=== PATIENT | female | born 1980 | race African-American/Black ===

== ENCOUNTER 2017-12-15 17:05 | Emergency (ER) | payer MEDICAID, MEDICARE ==
--- NOTE | 2017-12-15 18:43 | RAD ---
INDICATION: Left shoulder pain. COMPARISON: Comparison is made with a prior study from April 02, 2011. TECHNIQUE: 5 views of the left shoulder were obtained. FINDINGS: There is inferior subluxation of the humeral head relative to the glenoid process of the scapula. The glenoid process appears dysplastic. No acute fracture is seen. IMPRESSION: INFERIOR SUBLUXATION OF THE HUMERUS.
[2017-12-15] MEDS ORDERED: HYDROcodone/ACETAMIN 5-325 MG* 1 TAB PO ONE (18:50)
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
[2017-12-15 19:09] VITALS: BP 128/66
--- NOTE | 2017-12-16 07:06 | RAD ---
INDICATION: Left shoulder status post external reduction. COMPARISON: Comparison is made with the prior prereduction films of the same date. TECHNIQUE: A single AP view of the left shoulder was obtained. FINDINGS: The bones are normal alignment. There has been interval reduction of the previously noted inferior subluxation of the humerus. No fracture is seen. IMPRESSION: STATUS POST REDUCTION. THE BONES ARE IN NORMAL ALIGNMENT. R1NF
== END 2017-12-15 19:08 | disposition home or self-care (01) ==
LOC: ED 17:05
DX: S43.032A Inferior subluxation of left humerus, initial encounter (principal); X50.0XXA Overexertion from strenuous movement or load, initial encounter; Y92.410 Unspecified street and highway as the place of occurrence of the external cause; Z88.5 Allergy status to narcotic agent; Z88.8 Allergy status to other drugs, medicaments and biological substances
CPT/HCPCS: 23650; 99282

== ENCOUNTER 2017-12-16 16:34 | Emergency (ER) | payer SELFPAY ==
[2017-12-16] MEDS ORDERED: Diazepam TAB(*) 5 MG PO ONE ×3 (18:08→19:07)
[2017-12-16] MEDS ORDERED: Ketorolac INJ* 60 MG/2 ML VIAL IM ONE (18:09)
--- NOTE | 2017-12-16 18:16 | ED ---
Upper Extremity Pain - HPI Summary HPI Summary: Patient complains of persistent left shoulder pain status post left shoulder reduction here in the ED yesterday. States ibuprofen and Rx for hydrocodone are not controlling pain. Denies further dislocation. Admits to full range of motion but with pain. Patient seeking pain control. Denies loss of sensation or function distally on left, any other symptoms, injury, pain. - History of Current Complaint Chief Complaint: EDPrescriptionNeeded Stated Complaint: LT SHOULDER PAIN Time Seen by Provider: 12/16/17 17:30 Hx Obtained From: Patient Mechanism Of Injury: Other Onset/Duration: Started Days Ago Timing: Constant Severity Initially: Severe Severity Currently: Severe Pain Location: Shoulder Character: Throbbing Aggravating Factor(s): Movement, Abduction - Allergies/Home Medications Allergies/Adverse Reactions: Allergies Allergy/AdvReac Type Severity Reaction Status Date / Time morphine Allergy Hives Verified 12/15/17 17:22 ondansetron [From Zofran] Allergy Blisters Verified 12/15/17 17:22 PMH/Surg Hx/FS Hx/Imm Hx Endocrine/Hematology History: Denies: Hx Anticoagulant Therapy Respiratory History: Denies: Hx Lung Cancer History: Denies: Hx Dialysis Neurological History: Denies: Hx CVA Infectious Disease History: No Infectious Disease History: Denies: Traveled Outside the US in Last 30 Days - Social History Alcohol Use: None Substance Use Type: Reports: None Smoking Status (MU): Never Smoked Tobacco Review of Systems Constitutional: Negative Eyes: Negative ENT: Negative Cardiovascular: Negative Respiratory: Negative Gastrointestinal: Negative Genitourinary: Negative Positive: Arthralgia Skin: Negative Neurological: Negative Psychological: Normal All Other Systems Reviewed And Are Negative: Yes Physical Exam Vital Signs On Initial Exam: Initial Vitals Temp Pulse Resp BP Pulse Ox 98.6 F 60 14 141/101 100 12/16/17 16:45 12/16/17 16:45 12/16/17 16:45 12/16/17 16:45 12/16/17 16:45 Diagnostics - Vital Signs Vital Signs Temp Pulse Resp BP Pulse Ox 12/16/17 16:45 98.6 F 60 14 141/101 100 - Laboratory Lab Statement: Any lab studies that have been ordered have been reviewed, and results considered in the medical decision making process. Course/Dx - Course Course Of Treatment: Full range of motion left shoulder. No deformity, ecchymosis, erythema, extra warmth, swelling noted to left shoulder. Neuro exam normal distally on left upper extremity. Pain with abduction past shoulder level. Rx for Valium. Rx for oxycodone. Follow-up with orthopedics - Diagnoses Provider Diagnoses: Left shoulder pain Discharge - Sign-Out/Discharge Documenting (check all that apply): Patient Departure - Discharge Plan Condition: Stable Disposition: HOME Prescriptions: Diazepam TAB(*) [Valium TAB(*)] 5 mg PO TID PRN 2 Days #5 tab MDD 3 tabs PRN Reason: Pain Oxycodone HCl 5 mg PO Q6HR #8 tablet MDD 4 tabs Patient Education Materials: Shoulder Dislocation Exercises (GEN), Shoulder Dislocation (ED) Referrals: No Primary Care Phys,NOPCP [Primary Care Provider] - Felipe Mariscal MD [Medical Doctor] - Additional Instructions: Follow-up follow up with your orthopedic surgeon in [place] or with local orthopedics Dr. Mariscal for further evaluation of left shoulder pain. Return to the ED for any new or worsening symptoms - Billing Disposition and Condition Condition: STABLE Disposition: Home
[2017-12-16] MEDS ORDERED: oxyCODONE TAB* 5 MG TAB PO ONE ×2 (18:38→19:07)
[2017-12-16 19:21] VITALS: BP 127/79
== END 2017-12-16 19:20 | disposition home or self-care (01) ==
LOC: ED 16:34
DX: M25.512 Pain in left shoulder (principal); Z88.5 Allergy status to narcotic agent; Z88.8 Allergy status to other drugs, medicaments and biological substances
CPT/HCPCS: 99282; A9270-GY; J1885

== ENCOUNTER 2017-12-24 12:06 | Emergency (ER) | payer MEDICARE ==
--- OUTSIDE RECORDS SUMMARY | 2017-12-24 12:24 | XMS REPORT ---
:1980 External Reference #:[id number] Author Organization [facility] Address [address] [place] [address] Phone [phone] Care Team Providers Name Role Phone Patient's Choice Primary Care Physician Unavailable Payers Type Date Identification Numbers Payment Provider Subscriber Medicare Primary Policy Number: [id number] Medicare Layla Michaud PayID: [id number] [facility] [address] [place] [address] Problems Description No Information Social History Type Date Description Comments Lives With Children Occupation Disabled ETOH Use Denies alcohol use Smoking Patient has never smoked Allergies, Adverse Reactions, Alerts Date Description Reaction Status Severity Comments 12/19/2017 NKDA active Medications Medication Date Status Form Strength Qnty SIG Indications Ordering Provider No Active 12/19/2017 Active Unknown Medications Vital Signs Date Vital Result Comment 12/19/2017 Height 67 inches 5'7" Weight 149.75 lb Heart Rate 72 /min BP Systolic 112 mmHg BP Diastolic 76 mmHg Respiratory Rate 18 /min Body Temperature 98.3 F Pain Level 4 BMI (Body Mass Index) 23.5 kg/m2 Results Description No Information Procedures Description No Information Plan of Care Future Appointment(s):01/18/2018 10:00 am - Jonathan Yoon MD at [facility]12/19/2017 - Jonathan Yoon, [id number] Recurrent dislocation, left shoulderNew Therapy:Physical TherapyFollow up: Follow up: 4 weeks
--- NOTE | 2017-12-24 13:40 | RAD ---
INDICATION: Left shoulder pain and dislocation in a patient with a history of chronic dislocations. COMPARISON: Most recent comparison chest x-rays dated December 15, 2017 TECHNIQUE: 4 views of the left shoulder were obtained. FINDINGS: The left humeral head is displaced inferiorly and anteriorly relative to the bony glenoid labrum. There is irregularity of the bony glenoid labrum as well as flattening and bony remodeling of the left humeral head. IMPRESSION: APPEARANCES CONSISTENT WITH DISLOCATED LEFT SHOULDER WITH BONY REMODELING OF THE GLENOHUMERAL JOINT SURFACES INDICATING CHRONIC DISLOCATIONS.
[2017-12-24 15:02] VITALS: BP 120/88
--- NOTE | 2017-12-24 15:10 | ED ---
Upper Extremity Pain - HPI Summary HPI Summary: Patient is a 37-year-old female presenting to the ED with a left shoulder dislocation. Last shoulder dislocation was last week. She was followed up with Dr. Booth who suggested PT. She states she has remained in her sling since discharge from hospital except for when she was in the shower this morning. She states she slipped in the shower and put her arm down and in the shoulder immediately dislocated. She endorses a 5/10 pain, constant and aching. She denies any other trauma or pain at this time. She has had 2 previous surgeries to the same shoulder. History of jeovanny meehan. - History of Current Complaint Chief Complaint: EDShoulderClavicleInj Stated Complaint: LT SHOULDER INJURY Hx Obtained From: Patient Mechanism Of Injury: Twisted Onset/Duration: Started Hours Ago Timing: Constant Severity Initially: Moderate Severity Currently: Moderate Pain Location: Shoulder Character: Aching Aggravating Factor(s): Movement, Lifting, Flexion, Extension Alleviating Factor(s): Rest, Ice Associated Signs & Symptoms: Negative: Swelling, Redness, Bruising, Weakness, Numbness/Tingling Related History: Dominant Hand Right - Risk Factors Non-Orthopedic Risk Factor: Negative DVT Risk Factors: Negative Septic Arthritis Risk Factor: Negative Compartment Syndrome Risk Factors: Pain - Allergies/Home Medications Allergies/Adverse Reactions: Allergies Allergy/AdvReac Type Severity Reaction Status Date / Time morphine Allergy Hives Verified 12/15/17 17:22 ondansetron [From Zofran] Allergy Blisters Verified 12/15/17 17:22 PMH/Surg Hx/FS Hx/Imm Hx Previously Healthy: Yes Endocrine/Hematology History: Denies: Hx Anticoagulant Therapy Respiratory History: Denies: Hx Lung Cancer History: Denies: Hx Dialysis Neurological History: Denies: Hx CVA - Immunization History Hx Pertussis Vaccination: No Immunizations Up to Date: Yes Infectious Disease History: No Infectious Disease History: Denies: Traveled Outside the US in Last 30 Days - Social History Occupation: Unemployed Lives: With Family Alcohol Use: None Hx Substance Use: No Substance Use Type: Reports: None Hx Tobacco Use: No Smoking Status (MU): Never Smoked Tobacco Review of Systems Constitutional: Negative Negative: Fever, Chills, Fatigue, Skin Diaphoresis Negative: Epistaxis, Dental Pain Negative: Palpitations, Chest Pain Positive: no symptoms reported, see HPI Positive: Arthralgia - left shoulder dislocation Negative: Rash, Bruising Neurological: Negative Psychological: Normal All Other Systems Reviewed And Are Negative: Yes Physical Exam Triage Information Reviewed: Yes Vital Signs On Initial Exam: Initial Vitals Temp Pulse Resp BP Pulse Ox 97.8 F 77 14 133/54 99 12/24/17 12:11 12/24/17 12:11 12/24/17 12:11 12/24/17 12:11 12/24/17 12:11 Vital Signs Reviewed: Yes Appearance: Positive: Well-Appearing, Well-Nourished Skin: Positive: Warm, Skin Color Reflects Adequate Perfusion Head/Face: Positive: Normal Head/Face Inspection Eyes: Positive: EOMI, MARSHA, Conjunctiva Clear Neck: Positive: Supple Respiratory/Lung Sounds: Positive: Clear to Auscultation, Breath Sounds Present Cardiovascular: Positive: RRR, Pulses are Symmetrical in both Upper and Lower Extremities Musculoskeletal: Positive: Other - obvious shoulder dislocation Neurological: Positive: Sensory/Motor Intact, Alert, Oriented to Person Place, Time, Speech Normal Psychiatric: Positive: Normal, Affect/Mood Appropriate Diagnostics - Vital Signs Vital Signs Temp Pulse Resp BP Pulse Ox 12/24/17 15:01 98.2 F 70 14 120/88 99 12/24/17 12:11 97.8 F 77 14 133/54 99 - Laboratory Lab Statement: Any lab studies that have been ordered have been reviewed, and results considered in the medical decision making process. Course/Dx - Course Course Of Treatment: During the course., The patient is evaluated for left shoulder dislocation. X-ray shows inferior and anterior dislocation of the left shoulder. She has had multiple dislocations in the past. Discussed treatment options with patient who prefers no sedation with traction countertraction. Hippocrates shoulder reduction method used with good success. Post reduction x-rays obtained which shows adequate reduction. Sling is given and she is discharged with follow-up back to Dr. Booth. Tramadol x 2 days given for pain control. - Diagnoses Differential Diagnosis/HQI/PQRI: Positive: Fracture (Closed), Strain, Sprain Provider Diagnoses: Anterior dislocation of left shoulder Discharge - Sign-Out/Discharge Documenting (check all that apply): Patient Departure - Discharge Plan Condition: Stable Disposition: HOME Prescriptions: Oxycodone TAB(NF) [Oxycodone HCl 10 MG] 10 mg PO Q6H PRN #4 tab MDD 4 PRN Reason: Pain traMADol TAB* [Ultram*] 50 mg PO Q8H PRN #6 tab MDD 3 PRN Reason: Pain Referrals: Jonathan Yoon MD [Medical Doctor] - No Primary Care Phys,NOPCP [Primary Care Provider] - Additional Instructions: Please follow-up with Dr. Booth as indicated Keep arm in sling at all times - Billing Disposition and Condition Condition: STABLE Disposition: Home
--- NOTE | 2017-12-24 15:10 | RAD ---
INDICATION: Post reduction COMPARISON: Same day radiograph the left shoulder acquired at 1317 hours TECHNIQUE: 2 views of the left shoulder were obtained at 1418 hours. FINDINGS: The glenohumeral joint is anatomically aligned. There is no radiographically apparent acute fracture. IMPRESSION: ANATOMIC ALIGNMENT OF THE LEFT SHOULDER.
--- NOTE | 2017-12-24 19:33 | ED ---
Progress - Progress Note Progress Note: I supervised the care of the physician tax accounting assistant and I performed a history and physical on this patient. History: Recurrent left shoulder dislocation with previous surgery on the area. Also has recently seen orthopedics in this area. Physical exam: Deformity of the left shoulder with limitation of range of motion. Extremities neurovascularly intact. Plan: Patient wishes to have close reduction without any sedation. I assisted throughout the closed reduction procedure with the physician tax accounting assistant who I supervised. Course/Dx - Course Course Of Treatment: During the course., The patient is evaluated for left shoulder dislocation. X-ray shows inferior and anterior dislocation of the left shoulder. She has had multiple dislocations in the past. Discussed treatment options with patient who prefers no sedation with traction countertraction. Hippocrates shoulder reduction method used with good success. Post reduction x-rays obtained which shows adequate reduction. Sling is given and she is discharged with follow-up back to Dr. Booth. Tramadol x 2 days given for pain control. - Diagnoses Provider Diagnoses: Anterior dislocation of left shoulder Discharge - Sign-Out/Discharge Documenting (check all that apply): Patient Departure - Discharge Plan Condition: Stable Disposition: HOME Prescriptions: Oxycodone TAB(NF) [Oxycodone HCl 10 MG] 10 mg PO Q6H PRN #4 tab MDD 4 PRN Reason: Pain traMADol TAB* [Ultram*] 50 mg PO Q8H PRN #6 tab MDD 3 PRN Reason: Pain Referrals: Jonathan Yoon MD [Medical Doctor] - No Primary Care Phys,NOPCP [Primary Care Provider] - Additional Instructions: Please follow-up with Dr. Booth as indicated Keep arm in sling at all times - Billing Disposition and Condition Condition: STABLE Disposition: Home - Attestation Statements Document Initiated by Scribe: No
== END 2017-12-24 15:01 | disposition home or self-care (01) ==
LOC: ED 12:06
DX: S43.015A Anterior dislocation of left humerus, initial encounter (principal); W18.40XA Slipping, tripping and stumbling without falling, unspecified, initial encounter; Y93.E1 Activity, personal bathing and showering; Y92.002 Bathroom of unspecified non-institutional (private) residence as the place of occurrence of the external cause; Z88.5 Allergy status to narcotic agent
CPT/HCPCS: 23650; 99281

== ENCOUNTER 2018-01-04 08:53 | Emergency (ER) | payer MEDICARE, MEDICAID ==
[2018-01-04 08:58] VITALS: BP 136/83
--- NOTE | 2018-01-04 09:22 | ED ---
Upper Extremity Pain - HPI Summary HPI Summary: This patient is a 37 year old F presenting to [facility] with a chief complaint of left shoulder dislocation for the last two days. The patient rates the pain 5/ 10 in severity. Pt states she has a history of multiple dislocations and was recently seen in the ED for the same issue. She was referred to Dr. Yoon who she contacted two days ago when she dislocated it and he suggested she come to the ED. She states she attempted to relocate it for the last two days but was unsuccessful and has been having paresthesia in her hands. - History of Current Complaint Chief Complaint: EDShoulderClavicKipj Stated Complaint: LT SHOULDER PAIN Hx Obtained From: Patient Mechanism Of Injury: Other - none Onset/Duration: Started Days Ago - 2, Still Present Timing: Constant Severity Initially: Moderate Severity Currently: Moderate Pain Location: Shoulder Associated Signs & Symptoms: Positive: Numbness/Tingling Related History: Similar Episode/Dx As - Allergies/Home Medications Allergies/Adverse Reactions: Allergies Allergy/AdvReac Type Severity Reaction Status Date / Time morphine Allergy Hives Verified 01/04/18 08:58 ondansetron [From Zofran] Allergy Blisters Verified 01/04/18 08:58 PMH/Surg Hx/FS Hx/Imm Hx Endocrine/Hematology History: Denies: Hx Anticoagulant Therapy Respiratory History: Denies: Hx Lung Cancer History: Denies: Hx Dialysis Musculoskeletal History: Reports: Other Musculoskeletal History - shoulder dislocation Neurological History: Denies: Hx CVA Infectious Disease History: No Infectious Disease History: Denies: Traveled Outside the [place] in Last 30 Days - Family History Known Family History: Negative: Respiratory Disease, Seizure Disorder, Blood Disorder - Social History Alcohol Use: None Hx Substance Use: No Substance Use Type: Reports: None Hx Tobacco Use: No Smoking Status (MU): Never Smoked Tobacco Review of Systems Positive: Other - LUE dislocation Positive: Paresthesia All Other Systems Reviewed And Are Negative: Yes Physical Exam - Summary Physical Exam Summary: VITAL SIGNS: Reviewed. GENERAL: Patient is a well-developed and nourished female) who is lying comfortable in the stretcher. Patient is not in any acute respiratory distress. HEAD AND FACE: No signs of trauma. No ecchymosis, hematomas or skull depressions. No sinus tenderness. EYES: PERRLA, EOMI x 2, No injected conjunctiva, no nystagmus. EARS: Hearing grossly intact. Ear canals and tympanic membranes are within normal limits. MOUTH: Oropharynx within normal limits. NECK: Supple, trachea is midline, no adenopathy, no JVD, no carotid bruit, no c- spine tenderness, neck with full ROM. CHEST: Symmetric, no tenderness at palpation LUNGS: Clear to auscultation bilaterally. No wheezing or crackles. CVS: Regular rate and rhythm, S1 and S2 present, no murmurs or gallops appreciated. ABDOMEN: Soft, non-tender. No signs of distention. No rebound no guarding, and no masses palpated. Bowel sounds are normal. EXTREMITIES: left shoulder deformity. NEURO: Alert and oriented x 3. No acute neurological deficits. Speech is normal and follows commands. SKIN: Dry and warm Triage Information Reviewed: Yes Vital Signs On Initial Exam: Initial Vitals Temp Pulse Resp BP Pulse Ox 99.2 F 73 16 136/83 100 01/04/18 08:55 01/04/18 08:55 01/04/18 08:55 01/04/18 08:55 01/04/18 08:55 Vital Signs Reviewed: Yes Diagnostics - Vital Signs Vital Signs Temp Pulse Resp BP Pulse Ox 01/04/18 08:55 99.2 F 73 16 136/83 100 - Laboratory Lab Statement: Any lab studies that have been ordered have been reviewed, and results considered in the medical decision making process. - Radiology shoulder xray Radiology Interpretation Completed By: Radiologist Summary of Radiographic Findings: WIDENING OF THE ACROMIOHUMERAL INTERVAL CONSISTENT WITH A JOINT EFFUSION. THE DIFFERENTIAL. INCLUDES HEMARTHROSIS. ED physician has reviewed this radiology report. Course/Dx - Course Assessment/Plan: This patient is a 37 year old F presenting to [facility] with a chief complaint of left shoulder dislocation for the last two days. The patient rates the pain 5/10 in severity. Pt states she has a history of multiple dislocations and was recently seen in the ED for the same issue. She was referred to Dr. Yoon who she contacted two days ago when she dislocated it and he suggested she come to the ED. She states she attempted to relocate it for the last two days but was unsuccessful and has been having paresthesia in her hands. Shoulder x ray IMPRESSION: WIDENING OF THE ACROMIOHUMERAL INTERVAL CONSISTENT WITH A JOINT EFFUSION. THE DIFFERENTIAL. INCLUDES HEMARTHROSIS. Patient was given a Percocet for the pain. Patient will be discharged home with follow-up with orthopedics. She will be placed in a shoulder immobilizer. I discussed all the findings and test results with the patient. Patient was instructed to return to the emergency room immediately if any of the symptoms return or worsens. Plan of care was discussed with the patient and understands and agrees. All questions were answered at patient satisfaction. There were no further complaints or concerns. Lung exam before discharge: CTA B/L. Good air exchange. No wheezing or crackles heard. CVS: S1 and S2 present. No murmurs appreciated. Patient is alert and oriented x 3. Patient is hemodynamically stable. Patient will be discharged home with follow up PCP in the next 2-3 days - Diagnoses Differential Diagnosis/HQI/PQRI: Positive: Bursitis, Fracture (Closed), Strain, Sprain Provider Diagnoses: Acromioclavicular (AC) joint injury Discharge - Sign-Out/Discharge Documenting (check all that apply): Patient Departure - Discharge Plan Condition: Stable Disposition: HOME Prescriptions: Oxycodone HCl 5 mg PO Q6HR PRN #8 tablet MDD 4 tabs PRN Reason: Pain Patient Education Materials: Shoulder Pain (ED) Referrals: Elieser Maier MD [Medical Doctor] - As Soon As Possible Additional Instructions: Follow up with your primary care physician in 1-3 days. RETURN TO THE EMERGENCY DEPARTMENT FOR CHANGING OR WORSENING SYMPTOMS. - Billing Disposition and Condition Condition: STABLE Disposition: Home - Attestation Statements Document Initiated by Scribe: Yes Documenting Scribe: Raúl Dominguez Provider For Whom Marisa is Documenting (Include Credential): Edgar Conrad MD Scribe Attestation: Raúl Gama scribed for Edgar Conrad MD on 01/04/18 at 1933. Scribe Documentation Reviewed: Yes Provider Attestation: The documentation as recorded by the Raúl payton accurately reflects the service I personally performed and the decisions made by me, Edgar Conrad MD
[2018-01-04] MEDS ORDERED: fentaNYL* 50 MCG/ML 2 ML VIAL (100 MCG VIAL) IV SLOW PU ONE (09:30)
[2018-01-04] MEDS ORDERED: oxyCODONE/Acetamin 5/325 MG* TAB PO ONE (09:59)
== END 2018-01-04 10:56 | disposition home or self-care (01) ==
LOC: ED 08:53
DX: S49.92XA Unspecified injury of left shoulder and upper arm, initial encounter (principal); X58.XXXA Exposure to other specified factors, initial encounter; Y92.9 Unspecified place or not applicable; M25.012 Hemarthrosis, left shoulder; Z88.5 Allergy status to narcotic agent
CPT/HCPCS: 99282; A9270-GY; J3010

== ENCOUNTER 2018-01-05 09:24 | Emergency (ER) | payer MEDICARE, MEDICAID ==
--- NOTE | 2018-01-05 09:41 | ED ---
Medical Screening - HPI Summary HPI Summary: 37-year-old female presents with reaction to the pain medication she has given yesterday for an AC separation. She states that oxycodone makes her too drowsy as she cannot function with her kids. She states that she has to take the medication as her pain is extreme. She states that she tries to treat with ibuprofen but does not work. She has not been placing ice on the area. She states that she has a follow-up with orthopedic next week. She denies any new injury. She states only medication that does not cause drowsiness and treats her pain is norco. no numbness or tingling. no other pain. has been keeping arm in sling. hx of robert josue. - History of Current Complaint Chief Complaint: EDPrescriptionNeeded Stated Complaint: LEFT SHOULDER INJURY/SIDE EFFECTS FROM RX Time Seen by Provider: 01/05/18 09:30 PMH/Surg Hx/FS Hx/Imm Hx Endocrine/Hematology History: Denies: Hx Anticoagulant Therapy Respiratory History: Denies: Hx Lung Cancer History: Denies: Hx Dialysis Musculoskeletal History: Reports: Other Musculoskeletal History - shoulder dislocation Neurological History: Denies: Hx CVA Infectious Disease History: No Infectious Disease History: Denies: Traveled Outside the [place] in Last 30 Days - Family History Known Family History: Negative: Respiratory Disease, Seizure Disorder, Blood Disorder - Social History Alcohol Use: None Hx Substance Use: No Substance Use Type: Reports: None Hx Tobacco Use: No Smoking Status (MU): Never Smoked Tobacco Review of Systems Negative: Fever Negative: Chest Pain Negative: Shortness Of Breath Positive: Myalgia - left shoulder All Other Systems Reviewed And Are Negative: Yes Physical Exam Triage Information Reviewed: Yes Vital Signs On Initial Exam: Initial Vitals Temp Pulse Resp BP Pulse Ox 98.0 F 79 18 124/74 98 01/05/18 09:26 01/05/18 09:26 01/05/18 09:26 01/05/18 09:26 01/05/18 09:26 Vital Signs Reviewed: Yes Appearance: Positive: Well-Appearing Skin: Positive: Warm, Dry Head/Face: Positive: Normal Head/Face Inspection Eyes: Positive: Normal, Conjunctiva Clear ENT: Positive: Pharynx normal Respiratory/Lung Sounds: Positive: Clear to Auscultation, Breath Sounds Present Cardiovascular: Positive: Normal, RRR Musculoskeletal: Positive: Limited @ - left shoulder in sling, Other - tenderness over left shoulder, good pulses, 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 Course/Dx - Course Course Of Treatment: 37-year-old female presents with reaction to the pain medication she has given yesterday for an AC separation. She states that oxycodone makes her too drowsy as she cannot function with her kids. She states that she has to take the medication as her pain is extreme. She states that she tries to treat with ibuprofen but does not work. She has not been placing ice on the area. She states that she has a follow-up with orthopedic next week. She denies any new injury. She states only medication that does not cause drowsiness and treats her pain is norco. no numbness or tingling. no other pain. has been keeping arm in sling. on exam tendenress left shoulder. neurovasular intact. arm is in sling. discussed will send short script of norco. told to place ice on the area. patient understand and agrees with plan. - Diagnoses Provider Diagnoses: Side effect of medication Discharge - Sign-Out/Discharge Documenting (check all that apply): Patient Departure - Discharge Plan Condition: Good Disposition: HOME Prescriptions: HYDROcodone/ACETAMIN 5-325 MG* [[place] 5-325 TAB*] 1 tab PO Q6H PRN #8 tab MDD 4 PRN Reason: Pain Patient Education Materials: Shoulder Pain (ED) Referrals: No Primary Care Phys,NOPCP [Primary Care Provider] - Additional Instructions: follow up with ortho as scheduled ice area take ibuprofen every 6 hours use norco every 6 hours as needed for extreme pain Return to ED if develop any new or worsening symptoms - Billing Disposition and Condition Condition: GOOD Disposition: Home
[2018-01-05 09:48] VITALS: BP 124/74
== END 2018-01-05 10:01 | disposition home or self-care (01) ==
LOC: ED 09:24
DX: R40.0 Somnolence (principal); T40.2X5A Adverse effect of other opioids, initial encounter; Y92.9 Unspecified place or not applicable
CPT/HCPCS: 99282

== ENCOUNTER 2018-01-06 10:03 | Emergency (ER) | payer MEDICARE, MEDICAID ==
[2018-01-06 10:19] VITALS: BP 133/71
--- NOTE | 2018-01-06 10:56 | UC ---
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 Has had exacerbation since injury late in November, with ER visits. Has been assessed by Dr. Yoon and has a follow up visit scheduled with [facility] orthopedics. Currently in an immobilizer. Returned oxycodone to ER due to over sedation, but hydrocodone is not effective. Previous experience with tramodol was not helpful for pain. Is taking ibuprofen 800mg 4 times daily. Would like to try oxycodone 1/2 tablet for control of pain. - History of Current Complaint Chief Complaint: UCUpperExtremity Stated Complaint: SHOULDER PAIN Time Seen by Provider: 01/06/18 10:48 Hx Obtained From: Patient Onset/Duration: Gradual Onset, Lasting Weeks Severity Initially: Moderate Severity Currently: Moderate Pain Intensity: 5 Location Of Pain: Is Discrete @ - left shoulder girdle Aggravating Factor(s): Movement Alleviating Factor(s): Other: - shoulder immobilizer Associated Signs And Symptoms: Positive: Negative - Risk Factors Non-Orthopedic Risk Factor: Negative DVT Risk Factors: Negative Septic Arthritis Risk Factor: Negative - Allergies/Home Medications Allergies/Adverse Reactions: Allergies Allergy/AdvReac Type Severity Reaction Status Date / Time morphine Allergy Hives Verified 01/06/18 10:19 ondansetron [From Zofran] Allergy Blisters Verified 01/06/18 10:19 PMH/Surg Hx/FS Hx/Imm Hx - Additional Past Medical History Additional PMH: Ehler's Danlos syndrome Previously Healthy: No Cardiovascular History: Cardiac Disease - has valvular disease Other History Of: Negative For: Anticoagulant Therapy - Surgical History Surgical History: Yes Surgery Procedure, Year, and Place: lt shoulder repair 2013 - Family History Known Family History: Positive: Other - sister with Ehler's Danlos Negative: Respiratory Disease, Seizure Disorder, Blood Disorder - Social History Occupation: Disabled Lives: With Family - currently in [place] with 4 children Alcohol Use: None Substance Use Type: None Smoking Status (MU): Never Smoked Tobacco Review of Systems All Other Systems Reviewed And Are Negative: Yes Constitutional: Positive: Negative Skin: Positive: Negative Eyes: Positive: Negative ENT: Positive: Negative Respiratory: Positive: Negative Cardiovascular: Positive: Other - hx of valve incompetence. Gastrointestinal: Positive: Negative Genitourinary: Positive: Negative Motor: Positive: Negative Neurovascular: Positive: Negative Musculoskeletal: Positive: Arthralgia Neurological: Positive: Negative Psychological: Positive: Negative Is Patient Immunocompromised?: No Physical Exam Triage Information Reviewed: Yes Appearance: Well-Appearing, Pain Distress - mild Vital Signs: Initial Vital Signs Temp 97.9 F 01/06/18 10:13 Pulse 50 01/06/18 10:13 Resp 18 01/06/18 10:13 BP 133/71 01/06/18 10:13 Pulse Ox 98 01/06/18 10:13 Respiratory: Positive: Lungs clear, Normal breath sounds Cardiovascular: Positive: RRR, No Murmur - did not hear murmur Musculoskeletal Exam: Other - left shoulder immobilized. Psychological Exam: Normal Upper Extremity Course/Dx - Course Course Of Treatment: resume oxycodone for pain control. 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 Discharge - Sign-Out/Discharge Documenting (check all that apply): Patient Departure All imaging exams completed and their final reports reviewed: No Studies - Discharge Plan Condition: Stable Disposition: HOME Prescriptions: Oxycodone HCl 0.5 tab PO Q6HR PRN #10 tablet MDD 2tabs PRN Reason: Pain Patient Education Materials: Pain Management (ED) Referrals: No Primary Care Phys,NOPCP [Primary Care Provider] - Additional Instructions: As discussed, you will continue use of ibuprofen 800mg 3 or 4 times daily in addition to 1/2 oxycodone = 2.5mg every 6 hours as needed. Max daily dose is 2 tabls. Please ensure that you follow up with orthopedics as arranged. - Billing Disposition and Condition Condition: STABLE Disposition: Home
== END 2018-01-06 11:30 | disposition home or self-care (01) ==
LOC: UCEAST 10:03
DX: M24.412 Recurrent dislocation, left shoulder (principal); Z88.5 Allergy status to narcotic agent
CPT/HCPCS: 99212; G0463

== ENCOUNTER 2018-01-25 08:24 | Emergency (ER) | payer MEDICARE, MEDICAID ==
[2018-01-25] MEDS ORDERED: Ketorolac INJ* 30 MG/ML 1 ML VIAL IV PUSH ONE (08:40)
--- NOTE | 2018-01-25 09:03 | ED ---
Upper Extremity Pain - HPI Summary HPI Summary: 38-year-old female presents with possible shoulder dislocation today. She that she had surgery on her shoulder a week ago in [place]. She has history of dislocations. States she was working in PT and felt her shoulder come out. She denies any numbness or tingling. She has limited range of motion her shoulder. She hasn't taking anything for pain. - History of Current Complaint Chief Complaint: EDExtremityUpper Stated Complaint: POSS DISLOCATED LT SHOULDER Time Seen by Provider: 01/25/18 08:36 - Allergies/Home Medications Allergies/Adverse Reactions: Allergies Allergy/AdvReac Type Severity Reaction Status Date / Time morphine Allergy Hives Verified 01/25/18 08:35 ondansetron [From Zofran] Allergy Blisters Verified 01/25/18 08:35 PMH/Surg Hx/FS Hx/Imm Hx Endocrine/Hematology History: Denies: Hx Anticoagulant Therapy Respiratory History: Denies: Hx Asthma, Hx Lung Cancer History: Denies: Hx Dialysis Musculoskeletal History: Reports: Other Musculoskeletal History - shoulder dislocation Neurological History: Denies: Hx CVA - Surgical History Surgery Procedure, Year, and Place: lt shoulder repair 2013 Infectious Disease History: No Infectious Disease History: Denies: Traveled Outside the [place] in Last 30 Days - Family History Known Family History: Positive: Other - sister with Ehler's Danlos, Non- Contributory Negative: Respiratory Disease, Seizure Disorder, Blood Disorder - Social History Alcohol Use: None Hx Substance Use: No Substance Use Type: Reports: None Hx Tobacco Use: No Smoking Status (MU): Never Smoked Tobacco Review of Systems Negative: Fever Negative: Chest Pain Negative: Shortness Of Breath Positive: Myalgia - left shoulder pain All Other Systems Reviewed And Are Negative: Yes Physical Exam Triage Information Reviewed: Yes Vital Signs On Initial Exam: Initial Vitals Temp Pulse Resp BP Pulse Ox 97.7 F 78 17 129/68 100 01/25/18 08:31 01/25/18 08:31 01/25/18 08:31 01/25/18 08:31 01/25/18 08:31 Vital Signs Reviewed: Yes Appearance: Positive: Well-Appearing Skin: Positive: Warm, Dry Head/Face: Positive: Normal Head/Face Inspection Eyes: Positive: Normal, Conjunctiva Clear ENT: Positive: Pharynx normal Respiratory/Lung Sounds: Positive: Clear to Auscultation, Breath Sounds Present Cardiovascular: Positive: Normal, RRR Musculoskeletal: Positive: Limited @ - left shoulder, Other - deformity noted to left shoulder, 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 - Radiology shoulder Radiology Interpretation Completed By: Radiologist Summary of Radiographic Findings: posterior dislocation Course/Dx - Course Course Of Treatment: 38-year-old female presents with possible shoulder dislocation today. She that she had surgery on her shoulder a week ago in [place]. She has history of dislocations. States she was working in PT and felt her shoulder come out. She denies any numbness or tingling. She has limited range of motion her shoulder. She hasn't taking anything for pain. On exam deformity noted to left shoulder. Neurovascular intact. X-ray shows a posterior dislocation. Patient declined sedation. Attempted reduction 3 times and eventually with internal rotation and some abduction was able to reduce shoulder. Told keep area in sling whcih patent has. Told to follow-up with orthopedic. Patient understands agrees with plan. - Diagnoses Differential Diagnosis/HQI/PQRI: Positive: Fracture (Closed), Strain, Other - dislocation Provider Diagnoses: Posterior dislocation of shoulder joint Discharge - Sign-Out/Discharge Documenting (check all that apply): Patient Departure - Discharge Plan Condition: Good Disposition: HOME Prescriptions: HYDROcodone/ACETAMIN 5-325 MG* [[place] 5-325 TAB*] 1 tab PO Q6H PRN #4 tab MDD 4 PRN Reason: Pain Patient Education Materials: Shoulder Dislocation (ED) Referrals: No Primary Care Phys,NOPCP [Primary Care Provider] - Additional Instructions: keep in sling Take Tylenol and ibuprofen every 6 hours as needed for pain Ice/heat Follow up with ortho Return to ED if develop any new or worsening symptoms - Billing Disposition and Condition Condition: GOOD Disposition: Home
[2018-01-25 11:10] VITALS: BP 127/80
== END 2018-01-26 10:51 | disposition home or self-care (01) ==
LOC: ED 08:24
DX: S43.005A Unspecified dislocation of left shoulder joint, initial encounter (principal); X50.9XXA Other and unspecified overexertion or strenuous movements or postures, initial encounter; Y93.B9 Activity, other involving muscle strengthening exercises; Y92.9 Unspecified place or not applicable; Z88.5 Allergy status to narcotic agent
CPT/HCPCS: 23650; 96374; 99282; J1885

== ENCOUNTER 2018-01-26 09:21 | Emergency (ER) | payer MEDICARE, MEDICAID ==
--- NOTE | 2018-01-26 09:58 | ED ---
Upper Extremity Pain - HPI Summary HPI Summary: Patient here with persistent pain since dislocation of left shoulder yesterday. She has a history of recurring left shoulder dislocations and had surgery in [place] with Dr. Melgar recently. Unfortunately, she sustained a posterior Lt shoulder dislocation yesterday. She came here to the ED and shoulder was reduced prior to d/c. She was given one-day supply of [place] which she reports is not helping her pain. She's also been taking 500 mg of naproxen without relief. She is here for an increase in pain medication as well as enough pain medication to get her through until Monday when she is scheduled to see Dr. Melgar. She is unable to sleep d/t pain. She reports he was out of the office yesterday when she called to f/u. Denies numbness, tingling, weakness and she continues to keep her arm in an immobilizer as directed. She also has access to ice as she reports she's been sitting at the [facility]. NOTE: allregy list indicates allergy to morphine - she reports N/V and rash when she took this. H/o taking hydrocodone, oxycodone and tramadol w/o allergic sx. - History of Current Complaint Chief Complaint: EDPrescriptionNeeded Stated Complaint: LEFT SHOULDER INJURY Time Seen by Provider: 01/26/18 09:39 Hx Obtained From: Patient - Allergies/Home Medications Allergies/Adverse Reactions: Allergies Allergy/AdvReac Type Severity Reaction Status Date / Time morphine Allergy Hives Verified 01/25/18 08:35 ondansetron [From Zofran] Allergy Blisters Verified 01/25/18 08:35 PMH/Surg Hx/FS Hx/Imm Hx Previously Healthy: Yes Endocrine/Hematology History: Denies: Hx Anticoagulant Therapy Respiratory History: Denies: Hx Asthma, Hx Lung Cancer History: Denies: Hx Dialysis Musculoskeletal History: Reports: Other Musculoskeletal History - recurrent Lt shoulder dislocation requiring surgery Neurological History: Denies: Hx CVA - Surgical History Surgery Procedure, Year, and Place: lt shoulder repair 2013 Infectious Disease History: No Infectious Disease History: Denies: Traveled Outside the [place] in Last 30 Days - Family History Known Family History: Positive: Other - sister with Ehler's Danlos Negative: Respiratory Disease, Seizure Disorder, Blood Disorder - Social History Alcohol Use: None Hx Substance Use: No Substance Use Type: Reports: None Hx Tobacco Use: No Smoking Status (MU): Never Smoked Tobacco Review of Systems Constitutional: Negative Negative: Fever, Chills, Fatigue Cardiovascular: Negative Respiratory: Negative Gastrointestinal: Negative Positive: no symptoms reported Positive: Arthralgia Skin: Negative Neurological: Negative Psychological: Normal All Other Systems Reviewed And Are Negative: Yes Physical Exam Triage Information Reviewed: Yes Vital Signs On Initial Exam: Initial Vitals Temp Pulse Resp BP Pulse Ox 100.2 F 106 20 127/90 96 01/26/18 09:24 01/26/18 09:24 01/26/18 09:24 01/26/18 09:24 01/26/18 09:24 Vital Signs Reviewed: Yes Appearance: Positive: Well-Appearing, Pain Distress - mild at rest - wearing shoulder immobilzer Skin: Positive: Warm, Skin Color Reflects Adequate Perfusion, Dry - skin warm, dry, well perfused over Lt UE Head/Face: Positive: Normal Head/Face Inspection Eyes: Positive: Normal, EOMI ENT: Positive: Hearing grossly normal, Pharynx normal - mucosa moist Respiratory/Lung Sounds: Positive: Breath Sounds Present Cardiovascular: Positive: Pulses are Symmetrical in both Upper and Lower Extremities - no edema of hands Musculoskeletal: Positive: Limited @ - Lt UE limited d/t immobilization Neurological: Positive: Normal, Sensory/Motor Intact, Alert, Oriented to Person Place, Time, CN Intact II-III Psychiatric: Positive: Normal Diagnostics - Vital Signs Vital Signs Temp Pulse Resp BP Pulse Ox 01/26/18 09:24 100.2 F 106 20 127/90 96 - Laboratory Lab Statement: Any lab studies that have been ordered have been reviewed, and results considered in the medical decision making process. Course/Dx - Course Course Of Treatment: Pt took naproxen and norco prior to arrival - taking bus home. WIll refrain from further medication at this time and pt agrees - will f/ u w/ ortho Monday and return to ED if danger s/sx present. - Diagnoses Provider Diagnoses: Left shoulder pain Discharge - Sign-Out/Discharge Documenting (check all that apply): Patient Departure - Discharge Plan Condition: Stable Disposition: HOME Prescriptions: oxyCODONE/Acetamin 5/325 MG* [Percocet 5/325 TAB*] 1 tab PO Q6H PRN #15 tab MDD 4 PRN Reason: Pain Patient Education Materials: Shoulder Dislocation (ED) Referrals: Ramón BROWN,Nakul Larsen [Medical Doctor] - Additional Instructions: Continue to rest, ice, elevate and remain in immobilizer until seen by orthopedics Monday Take medications as directed: - continue ibuprofen 800mg every 8hours with food - take percocet as needed for breakthrough pain - may cause constipation, drowsiness and rebound pain - use judiciously If you develop numbness, weakness or swelling of hand, call Dr. Melgar - if no evaluation offered, return to ED - Billing Disposition and Condition Condition: STABLE Disposition: Home
[2018-01-26 10:31] VITALS: BP 133/56
== END 2018-01-26 10:30 | disposition home or self-care (01) ==
LOC: ED 09:21
DX: M25.512 Pain in left shoulder (principal); Z88.6 Allergy status to analgesic agent; Z87.828 Personal history of other (healed) physical injury and trauma
CPT/HCPCS: 99282

== ENCOUNTER → 2018-01-27 | Emergency (ER) | payer MEDICARE, MEDICAID ==
--- NOTE | 2018-01-27 18:38 | ED ---
Allergic Reaction/Systemic - HPI Summary HPI Summary: Pt here w/ pruritic "hives", nausea, vomiting s/p taking percocet. Last dose was at 13:00 - had nausea and vomiting 30 mins later but has not had any since. Took OTC "non-drowsy allergy med" - itching resolved. No difficulty breathing or swallowing. Was rx'd percocet for her Lt shoulder pain s/p dislocation after surgery - she received these yesterday and reported that her pain was intolerable and that norco was not helping, She also reported a h/o taking norco , percocet and tramadol w/o issues despite N/V w/ morphine in the past. Continues to have pain today - requesting to go back to norco rx because this helped somewhat and did not trigger allergic rxn. Reports ibuprofen and acetaminophen alone are not effective for her level of pain. Denies reinjury since reduction 2 nights ago. As per previous note, she has f/u this Monday w/ Dr. Ramón kim at [facility] - History of Current Complaint Chief Complaint: EDAllergicReaction Time Seen by Provider: 01/27/18 17:36 Hx Obtained From: Patient, Family/Precision Assembler - female child present w/ her today Pain Intensity: 3 - Allergies/Home Medications Allergies/Adverse Reactions: Allergies Allergy/AdvReac Type Severity Reaction Status Date / Time morphine Allergy Hives Verified 01/29/18 12:55 ondansetron [From Zofran] Allergy Blisters Verified 01/29/18 12:55 oxycodone Allergy Vomiting Verified 01/29/18 12:55 propofol Allergy Hives Verified 01/29/18 12:55 PMH/Surg Hx/FS Hx/Imm Hx Previously Healthy: No - acute on chronic Lt shoulder pain Endocrine/Hematology History: Denies: Hx Anticoagulant Therapy, Autoimmune Disease Respiratory History: Denies: Hx Asthma, Hx Lung Cancer History: Denies: Hx Dialysis Musculoskeletal History: Reports: Other Musculoskeletal History - recurrent Lt shoulder dislocation requiring surgery Neurological History: Denies: Hx CVA - Surgical History Surgery Procedure, Year, and Place: lt shoulder repair 2013 Infectious Disease History: No Infectious Disease History: Denies: Traveled Outside the [place] in Last 30 Days - Family History Known Family History: Positive: Other - sister with Ehler's Danlos Negative: Respiratory Disease, Seizure Disorder, Blood Disorder - Social History Lives: With Family Alcohol Use: None Hx Substance Use: No Substance Use Type: Reports: None Hx Tobacco Use: No Smoking Status (MU): Never Smoked Tobacco Review of Systems Constitutional: Negative Negative: Fever, Chills, Fatigue Eyes: Negative ENT: Negative Cardiovascular: Negative Positive: Vomiting, Nausea Genitourinary: Negative Positive: Arthralgia - Lt shoulder Skin: Other - "hives" Neurological: Negative Psychological: Normal All Other Systems Reviewed And Are Negative: Yes Physical Exam Triage Information Reviewed: Yes Vital Signs On Initial Exam: Initial Vitals Temp Pulse Resp BP Pulse Ox 98.3 F 95 16 129/68 97 01/27/18 16:40 01/27/18 16:40 01/27/18 16:40 01/27/18 16:40 01/27/18 16:40 Vital Signs Reviewed: Yes Appearance: Positive: Well-Appearing - other than mild facial flushing, appears well, Well-Nourished, Pain Distress - mild Skin: Positive: Warm, Skin Color Reflects Adequate Perfusion, Dry - flushing of chest -no urticarial rash observed, no excoriations Head/Face: Positive: Normal Head/Face Inspection - no edema Eyes: Positive: Normal, EOMI, MARSHA, Conjunctiva Clear. Negative: Conjunctiva Inflammed, Discharge ENT: Positive: Normal ENT inspection, Hearing grossly normal, Pharynx normal - mucosa moist. Negative: Nasal congestion, Nasal drainage Neck: Positive: Supple Respiratory/Lung Sounds: Positive: Breath Sounds Present. Negative: Stridor, Wheezes, Unable to speak in full sentences, Fatigue Cardiovascular: Positive: Normal Abdomen Description: Positive: Nontender, Soft Musculoskeletal: Positive: Other - Lt arm in shoulder immobilizer Neurological: Positive: Normal, Sensory/Motor Intact, Alert, Oriented to Person Place, Time, CN Intact II-III Psychiatric: Positive: Normal Diagnostics - Vital Signs Vital Signs Temp Pulse Resp BP Pulse Ox 01/27/18 16:40 98.3 F 95 16 129/68 97 - Laboratory Lab Statement: Any lab studies that have been ordered have been reviewed, and results considered in the medical decision making process. Allergic Reaction Course/Dx - Course Course Of Treatment: Pt does not appear to be having acute allergic nor anaphylactix rxn here. Offered to take pt's percocet that caused her side effects to dispose of it here - when she prepares to give me the bottle, she is unable to locate her purse. She then became panicked that she left this in the waiting room or cab that she took to come here. Unable to locate purse prior to d/c, she agrees to dispose of percocet at the pharmacy, post office or return to ED/UC and drop off for disposal. NOTE: pt's frequent ED use for Lt shoulder pain is observed at past 2 visits. Will monitor for signs of dependence/abuse of narcotics if she continues to use ED for pain control beyond acute phase. - Diagnoses Provider Diagnoses: Medication reaction Discharge - Sign-Out/Discharge Documenting (check all that apply): Patient Departure - Discharge Plan Condition: Stable Disposition: HOME Prescriptions: HYDROcodone/ACETAMIN 5-325 MG* [[place] 5-325 TAB*] 1 tab PO Q6H PRN #4 tab MDD 4 PRN Reason: Pain Patient Education Materials: Urticaria (ED) Referrals: Ramón BROWN,Nakul Larsen [Medical Doctor] - Additional Instructions: You appear to be having an allergic reaction to percocet. It is advised that you drink plenty of water (more than half your body weight in ounces = 70+ ounces) and take benadryl 50mg every 6 hours as needed for itching, nausea. If symptoms persist or worsen (ie. throat tightness, difficulty breathing or swallowing), return to the ED. Your pain medication has been switched to norco as you took this yesterday and other days recently without any difficulty. Please follow-up with Dr. Melgar Monday as scheduled for ongoing management of your left shoulder condition. Let them know about your percocet allergy so they may add it to your allergy list. - Billing Disposition and Condition Condition: STABLE Disposition: Home
[2018-01-27 18:43] VITALS: BP 116/64
== END | disposition home or self-care (01) ==
LOC: ED 16:37
DX: L50.9 Urticaria, unspecified (principal)
CPT/HCPCS: 99281

== ENCOUNTER 2018-01-29 12:37 | Emergency (ER) | payer MEDICARE, MEDICAID ==
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
[2018-01-29 12:57] VITALS: BP 144/80
== END 2018-01-29 13:30 | disposition home or self-care (01) ==
LOC: UCEAST 12:37
DX: M25.512 Pain in left shoulder (principal); Z88.5 Allergy status to narcotic agent; Z88.6 Allergy status to analgesic agent; Z88.8 Allergy status to other drugs, medicaments and biological substances
CPT/HCPCS: 99213; G0463

== ENCOUNTER 2018-02-07 09:47 | Emergency (ER) | payer MEDICARE, MEDICAID ==
--- NOTE | 2018-02-07 10:12 | ED ---
Upper Extremity Pain - HPI Summary HPI Summary: This pt is a 38 y/o female presenting to [facility] c/o left shoulder pain s/p shoulder dislocation yesterday. Pt reports she has hx of left shoulder dislocations, for which she had surgery at [facility] recently. She states she has been having frequent dislocations since her surgery and now they are posterior dislocations. She notes yesterday pt was not doing anything and around 13:15 her left shoulder became dislocated. Additionally reports tingling in left fingers. Currently rates her pain 5/10 in severity. Pt reports she saw Dr. Lynch last week and told her that during her past surgery "it was tightened too much" and now has this problem that is too severe. He referred her to Dr. Yoon and is supposed to have another surgery, date is not known yet. She requested pain medications but was told that she has not had surgery with them yet and they cannot prescribe it. Pt is requesting pain medications to treat her pain. Pt has been seen in the ED multiple times in the past couple of months for the same and requesting pain medications. - History of Current Complaint Chief Complaint: EDShouldJulien Stated Complaint: LEFT SHOULDER INJURY Time Seen by Provider: 02/07/18 10:00 Hx Obtained From: Patient Mechanism Of Injury: Other - recurrent left shoulder dislocation Onset/Duration: Started Days Ago - 1, Still Present Timing: Lasting Days - 1 Severity Currently: Moderate Pain Location: Shoulder - left Aggravating Factor(s): Movement Alleviating Factor(s): Rest Associated Signs & Symptoms: Positive: Numbness/Tingling - in left fingers. Negative: Fever, Chest Pain, SOB, Neck Pain, Nausea, Vomiting Related History: Similar Episode/Dx As - past frequent left shoulder dislocation - Allergies/Home Medications Allergies/Adverse Reactions: Allergies Allergy/AdvReac Type Severity Reaction Status Date / Time morphine Allergy Hives Verified 01/29/18 12:55 ondansetron [From Zofran] Allergy Blisters Verified 01/29/18 12:55 propofol Allergy Hives Verified 01/29/18 12:55 PMH/Surg Hx/FS Hx/Imm Hx Endocrine/Hematology History: Denies: Hx Anticoagulant Therapy Respiratory History: Denies: Hx Asthma, Hx Lung Cancer History: Denies: Hx Dialysis Musculoskeletal History: Reports: Other Musculoskeletal History - recurrent Lt shoulder dislocation requiring surgery Neurological History: Denies: Hx CVA - Surgical History Surgery Procedure, Year, and Place: lt shoulder repair 2013 Infectious Disease History: No Infectious Disease History: Denies: Traveled Outside the [place] in Last 30 Days - Family History Known Family History: Positive: Other - sister with Ehler's Danlos, Non- Contributory Negative: Respiratory Disease, Seizure Disorder, Blood Disorder - Social History Alcohol Use: None Hx Substance Use: No Substance Use Type: Reports: None Hx Tobacco Use: No Smoking Status (MU): Never Smoked Tobacco Review of Systems Negative: Fever, Chills Negative: Chest Pain Negative: Shortness Of Breath Gastrointestinal: Negative Musculoskeletal: Other - POSITIVE: left shoulder dislocation Positive: Paresthesia - in her left fingers All Other Systems Reviewed And Are Negative: Yes Physical Exam - Summary Physical Exam Summary: Appearance: Well appearing, no pain distress Skin: warm, dry, reflects adequate perfusion Head/face: normal Eyes: EOMI, MARSHA ENT: normal Neck: supple, nontender Respiratory: CTA, breath sounds present Cardiovascular: RRR, pulses symmetrical Abdomen: nontender, soft Musculoskeletal: strength/ROM intact. LUE: tenderness on her left shoulder Neuro: normal, sensory motor intact, A&Ox3 Triage Information Reviewed: Yes Vital Signs On Initial Exam: Initial Vitals Temp Pulse Resp BP Pulse Ox 99.0 F 98 18 143/80 97 02/07/18 09:49 02/07/18 09:49 02/07/18 09:49 02/07/18 09:49 02/07/18 09:49 Vital Signs Reviewed: Yes Diagnostics - Vital Signs Vital Signs Temp Pulse Resp BP Pulse Ox 02/07/18 09:49 99.0 F 98 18 143/80 97 - Laboratory Lab Statement: Any lab studies that have been ordered have been reviewed, and results considered in the medical decision making process. - Radiology Left shoulder XR Radiology Interpretation Completed By: Radiologist Summary of Radiographic Findings: IMPRESSION: Inferior and posterior subluxation of the humeral head with respect to the glenoid similar to previous examinations. Dr. Cruz has reviewed this report. Re-Evaluation - Re-Evaluation First Eval Re-Evaluation Time: 11:09 Comment: I reviewed the XR results with the pt. Course/Dx - Course Assessment/Plan: Pt is a 38 y/o female, with hx of shoulder dislocations s/p surgery, who presents with left shoulder pain s/p shoulder dislocation yesterday. She notes yesterday pt was not doing anything and around 13:15 her left shoulder became dislocated. Additionally reports tingling in left fingers. Left shoulder XR obtained. Left shoulder XR shows inferior and posterior subluxation of the humeral head with respect to the glenoid similar to previous examinations. Pt will be discharged home with follow up from Dr. Yoon, orthopedist. She was given a prescription for Voltaren. Pt was instructed to return to the ED for any worsening or new symptoms. - Diagnoses Differential Diagnosis/HQI/PQRI: Positive: Fracture (Open), Strain Provider Diagnoses: Left shoulder pain Discharge - Sign-Out/Discharge Documenting (check all that apply): Patient Departure - Discharge home - Discharge Plan Condition: Stable Disposition: HOME Prescriptions: Diclofenac Sodium EC TAB* [Voltaren EC TAB*] 50 mg PO TID PRN #15 tab.ec MDD 3 PRN Reason: Pain Patient Education Materials: Shoulder Pain (ED) Referrals: [facility] [Outside] Jonathan Yoon MD [Medical Doctor] - Additional Instructions: Please follow up with Dr. Yoon, orthopedics. RETURN TO THE ED FOR ANY WORSENING OR NEW SYMPTOMS. - Billing Disposition and Condition Condition: STABLE Disposition: Home - Attestation Statements Document Initiated by Marisa: Yes Documenting Scribe: Jocy Lemos Provider For Whom Marisa is Documenting (Include Credential): Alfredo Cruz MD Scribe Attestation: Jocy Gama, scribed for Alfredo Cruz MD on 02/07/18 at 1146. Scribe Documentation Reviewed: Yes Provider Attestation: The documentation as recorded by the Jocy payton accurately reflects the service I personally performed and the decisions made by me, Alfredo Cruz MD Status of Scribe Document: Viewed
[2018-02-07 11:22] VITALS: BP 136/89
== END 2018-02-07 11:22 | disposition home or self-care (01) ==
LOC: ED 09:47
DX: M25.512 Pain in left shoulder (principal); M24.412 Recurrent dislocation, left shoulder; X58.XXXA Exposure to other specified factors, initial encounter; Y92.9 Unspecified place or not applicable; Z88.5 Allergy status to narcotic agent
CPT/HCPCS: 99282